=== PATIENT | male | born 1950 | race Hispanic/Latino ===

== ENCOUNTER 2019-02-19 12:28 | Emergency (ER) | payer BC ==
[~2019-02-19] VITALS: Ht 157.5 cm; Wt 65.8 kg
--- OUTSIDE RECORDS SUMMARY | 2019-02-19 12:31 | XMS REPORT ---
Author Author [facility] Address Unknown Phone Unavailable Care Team Providers Care Internal Grinder Tender Name Role Phone DR RASHID NAVA Unavailable Unavailable Yuli ROBIN Unavailable Unavailable Problems This patient has no known problems. Allergies, Adverse Reactions, Alerts This patient has no known allergies or adverse reactions. Medications This patient has no known medications. Encounters Start Date/Time End Date/Time Encounter Type Admission Type Attending [facility] Care Facility Care Department Encounter ID 2017-09-29 04:50:00 2017-09-29 08:19:00 Outpatient C RASHID NAVA [facility] [id number] Results Test Description Test Time Test Comments Text Results Atomic Results Result Comments SP LUMBAR, COMPLETE MIN 4VW [place] [address] Patient Name: LUIS M PRATHER I MR #: [id number] : 1950 Age/Sex: 66/M Req #: [id number] Adm Physician: Ordered by: KRISTINA ROBIN MD Report #: [id number] Location: ER Room/Bed: Procedure: [id number] DX/SP LUMBAR, COMPLETE MIN 4VW Exam Date: 08/20/17 Exam Time: 1126 REPORT STATUS: Signed Lumbar spine, complete. History: Pain. Comparison: None. Discussion: There are 5 lumbar type vertebral bodies. No displaced fracture or dislocation. Age-indeterminate compression fracture of L1 with approximate 25% decrease of the anterior vertebral body height. Degenerative changes evidenced by anterior osteophytosis. Bilateral facet hypertrophy is present at L4/L5 and L5/S1. The alignment of the lumbar spine is normal. The vertebral bodies and intervertebral disk spaces are within normal limits. There is no evidence of spondylolisthesis or spondylolysis. No evidence of lytic or sclerotic lesion. The paravertebral soft tissues are unremarkable. Atherosclerotic calcifications. IMPRESSION: No acute radiographic abnormality. Age indeterminate compression fracture of L1. Degenerative changes. Signed by: Dr. Ozzie Thompson M.D. on 08/20/2017 11:56 AM Dictated By: OZZIE THOMPSON MD 1156 Transcribed By: COURTNEY on 08/20/17 1156 COPY TO: KRISTINA ROBIN MD SHOULDER LEFT COMPLETE [place] [address] Patient Name: LUIS M PRATHER I MR #: [id number] : 1950 Age/Sex: 66/M Req #: [id number] Adm Physician: Ordered by: KRISTINA ROBIN MD Report #: [id number] Location: ER Room/Bed: Procedure: [id number] DX/SHOULDER LEFT COMPLETE Exam Date: 08/20/17 Exam Time: 1126 REPORT STATUS: Signed Left shoulder - 2 views HISTORY: Pain. COMPARISON: None available. FINDINGS: Bones: No acute displaced fracture. No expansile lytic or sclerotic lesion. Joints: The joint spaces are well- maintained. No dislocation. Soft tissues: The soft tissues appear unremarkable. IMPRESSION: No acute radiographic abnormality. Signed by: Dr. Ozzie Thompson M.D. on 08/20/2017 11:58 AM Dictated By: OZZIE THOMPSON MD 1154 Transcribed By: COURTNEY on 08/20/17 1155 COPY TO: KRISTINA ROBIN MD
[2019-02-19] MEDS ORDERED: LIDOCAINE HCL 1% 2 ML AMP INJ ONE (14:00)
[2019-02-19] MEDS ORDERED: LIDOCAINE HCL 1% LOCAL INJ 20 ML VIAL ONE (15:06)
[2019-02-19] MEDS ORDERED: AUGMENTIN 875-1 EACH PO (15:47)
[2019-02-19] MEDS ORDERED: TYLENOL WITH C1 EACH PO (15:57)
[2019-02-19] MEDS ORDERED: ACETAMINOPHEN/CODEINE 300MG - 30MG TAB PO ONE (16:00)
--- NOTE | 2019-02-19 16:31 | Diagnostic Imaging Report ---
Exam: Left rib radiographs History: Rib pain status post fall Comparison: None. Findings: The lungs are well-inflated and without focal airspace consolidation, pleural effusion, or pneumothorax. Cardiomediastinal contour and pulmonary vasculature are within normal limits. Surgical anchors in the left humeral head. L1 vertebroplasty cement. Acute minimally displaced fractures of the lateral aspects of the sixth and seventh ribs. Impression: Acute minimally displaced fractures of the lateral aspect of the left sixth and seventh ribs. No pneumothorax. Signed by: Dr. Harshad Goyal M.D. on 02/19/2019 4:28 PM
== END 2019-02-19 17:08 | disposition home or self-care (01) ==
LOC: ER 12:28
DX: S01.81XA Laceration without foreign body of other part of head, initial encounter (principal); S00.83XA Contusion of other part of head, initial encounter; S22.42XA Multiple fractures of ribs, left side, initial encounter for closed fracture; S20.212A Contusion of left front wall of thorax, initial encounter; W01.0XXA Fall on same level from slipping, tripping and stumbling without subsequent striking against object, initial encounter; Y92.008 Other place in unspecified non-institutional (private) residence as the place of occurrence of the external cause
CPT/HCPCS: 12051; 71101; 99283; J2001

== ENCOUNTER 2019-02-21 11:23 | Emergency (ER) | payer BC ==
[~2019-02-21] VITALS: Ht 154.9 cm; Wt 63.5 kg
[~2019-02-21 11:23] MED LIST: AUGMENTIN 875-1 EACH PO; TYLENOL WITH C1 EACH PO
[2019-02-21 11:41] VITALS: BP 116/79
== END 2019-02-21 11:44 | disposition left against medical advice (07) ==
LOC: ER 11:23
DX: R68.84 Jaw pain (principal)

== ENCOUNTER 2019-03-02 09:27 | Emergency (ER) | payer BC ==
[~2019-03-02] VITALS: Ht 154.9 cm; Wt 63.5 kg
[2019-03-02] MEDS ORDERED: HYDROCODONE/APAP 10MG-325MG TAB PO ONE (11:00)
--- NOTE | 2019-03-02 12:09 | Diagnostic Imaging Report ---
EXAM: CT Chest WITHOUT contrast INDICATION: ^S/P FALL ANTERIOR CHEST PAIN. Flu from fall. 2 ribs. Status post fall. Anterior chest pain. COMPARISON: Chest x-ray and rib series 02/19/2018. TECHNIQUE: Chest was scanned utilizing a multidetector helical scanner from the lung apex through the level of the adrenal glands without administration of IV contrast. Absence of intravenous contrast decreases sensitivity for detection of lymphadenopathy and vascular pathology. Coronal and sagittal reformations were obtained. Routine protocol was performed. IV CONTRAST: None COMPLICATIONS: None RADIATION DOSE: Total DLP: 564.24 mGy*cm Estimated effective dose: (DLP x 0.014 x size factor) mSv CTDIvol has been reviewed. It is below the limits set by the Radiation Protocol Committee (RPC). Dose modulation, iterative reconstruction, and/or weight based adjustment of the mA/kV was utilized to reduce the radiation dose to as low as reasonably achievable. FINDINGS: LINES/ TUBES: None. LUNGS AND AIRWAYS: The lungs are unremarkable. Airways are normal. * Cucumber 5 mm nodule in the right middle lobe abutting the minor fissure (series 3, image 69), likely intraparenchymal lymph node. * 5.2 mm nodule in the left lower lobe abutting the left major fissure (series 3, image 60). Subtle groundglass opacity in the right middle lobe. (Series 3, image 81) Mild scarring in the medial aspect of the right lower lobe. PLEURA: The pleural spaces are clear. HEART AND MEDIASTINUM: The thyroid gland is normal. No mediastinal, hilar or axillary lymphadenopathy. The heart is normal in size. There is no pericardial effusion. UPPER ABDOMEN: Atherosclerotic calcifications in the aorta. Upper abdomen is otherwise unremarkable. BONES: L1 vertebral plasty cement. Left rotator cuff anchor sutures. Nondisplaced acute fractures of the lateral fifth and sixth ribs. SOFT TISSUES: Unremarkable. IMPRESSION: 1. Stable nondisplaced fracture of the left fifth and sixth ribs. 2. Subtle groundglass opacity in the right middle lobe, which may represent subtle developing pneumonia. Signed by: Dr. Xavier Escudero M.D. on 03/02/2019 12:06 PM
[2019-03-02] MEDS ORDERED: LIDOCAINE HCL 1% 2 ML AMP ONE (12:53)
[2019-03-02] MEDS ORDERED: MECLIZINE HCL 12.5 MG TAB ONE (12:53)
[2019-03-02] MEDS ORDERED: LIDOCAINE HCL 1% LOCAL INJ 20 ML VIAL ONE (12:54)
[2019-03-02] MEDS ORDERED: CEFTRIAXONE SOD 1 GM VIAL IM ONE (13:30)
== END 2019-03-02 13:43 | disposition home or self-care (01) ==
LOC: ER 09:27
DX: R07.89 Other chest pain (principal); R06.02 Shortness of breath; S22.42XA Multiple fractures of ribs, left side, initial encounter for closed fracture; W18.30XA Fall on same level, unspecified, initial encounter; Y92.008 Other place in unspecified non-institutional (private) residence as the place of occurrence of the external cause; J15.9 Unspecified bacterial pneumonia
CPT/HCPCS: 71250; 99283; J0696; J2001 ×2; J8597

== ENCOUNTER 2019-05-27 10:10 | Emergency (ER) | payer BC, MEDICARE ==
[~2019-05-27] VITALS: Ht 154.9 cm; Wt 63.5 kg
[2019-05-27] MEDS ORDERED: TRAMADOL HCL 50 MG TAB PO ONE (10:30)
[2019-05-27] MEDS ORDERED: CYCLOBENZAPRINE HCL 10 MG TAB PO ONE (10:30)
--- NOTE | 2019-05-27 10:55 | Diagnostic Imaging Report ---
Right shoulder, 2 views. History: Fall. Findings: The soft tissues are normal. Bone mineralization is normal. There is no evidence of fracture, AC separation, or dislocation. There are no lytic or sclerotic lesions. There is right AC joint hypertrophy with inferior spurring. The glenohumeral joint is within normal limits. IMPRESSION: Right AC joint DJD. No acute osseous abnormality. Signed by: Farhan Levy on 05/27/2019 10:51 AM
[2019-05-27] MEDS ORDERED: IBUPROFEN 400 MG TAB PO ONE (11:00)
== END 2019-05-27 11:21 | disposition home or self-care (01) ==
LOC: ER 10:10
DX: S46.811A Strain of other muscles, fascia and tendons at shoulder and upper arm level, right arm, initial encounter (principal); X50.9XXA Other and unspecified overexertion or strenuous movements or postures, initial encounter; Y93.E1 Activity, personal bathing and showering; Y92.002 Bathroom of unspecified non-institutional (private) residence as the place of occurrence of the external cause
CPT/HCPCS: 99283

== ENCOUNTER 2021-04-05 11:28 | Emergency (ER) | payer MEDICARE ==
[~2021-04-05] VITALS: Ht 154.9 cm; Wt 63.5 kg
[2021-04-05] MEDS ORDERED: TRAMADOL HCL 50 MG TAB PO STA (11:50)
[2021-04-05] MEDS ORDERED: TETANUS/DIPHTHERIA TOX ADULT 0.5 ML SYR IM ONE (12:30)
[2021-04-05] MEDS ORDERED: SUMATRIPTAN SUC25 MG PO (12:33)
[2021-04-05] MEDS ORDERED: ATORVASTATIN CA20 MG PO (12:34)
[2021-04-05] MEDS ORDERED: FOLIC ACID0.8 MG (12:35)
[2021-04-05] MEDS ORDERED: HYDROXYZINE PAM25 MG PO (12:35)
[2021-04-05] MEDS ORDERED: DOXYCYCLINE HY100 MG PO (12:36)
[2021-04-05] MEDS ORDERED: PANTOPRAZOLE SO40 MG PO (12:36)
[2021-04-05] MEDS ORDERED: METOCLOPRAMIDE10 MG PO (12:49)
== END 2021-04-05 13:43 | disposition home or self-care (01) ==
LOC: ER 12:07
DX: S63.641A Sprain of metacarpophalangeal joint of right thumb, initial encounter (principal); X58.XXXA Exposure to other specified factors, initial encounter; Y92.008 Other place in unspecified non-institutional (private) residence as the place of occurrence of the external cause
CPT/HCPCS: 90714; 99283

== ENCOUNTER 2022-01-21 17:49 | Emergency (ER) | payer MEDICARE ==
[~2022-01-21] VITALS: Ht 154.9 cm; Wt 63.5 kg
[~2022-01-21 17:49] MED LIST changes: +ATORVASTATIN CA20 MG PO; +DOXYCYCLINE HY100 MG PO; +FOLIC ACID0.8 MG; +HYDROXYZINE PAM25 MG PO; +METOCLOPRAMIDE10 MG PO; +PANTOPRAZOLE SO40 MG PO; +SUMATRIPTAN SUC25 MG PO
[2022-01-21] MEDS ORDERED: IBUPROFEN 600 MG TAB PO STA (18:27)
[2022-01-21] MEDS ORDERED: CEFTRIAXONE 1 GM in SODIUM CHLORIDE 0.9% 50ML 50 ML IV SCH (18:45)
[2022-01-21 18:54] LABS: BASOPHILS % 0.2 % (0.0-1.0); EOSINOPHILS # (AUTO) 0.4 (0.0-0.4); EOSINOPHILS % 4.3 % (0.0-6.0); HEMATOCRIT 40.5 % (38.2-49.6); HEMOGLOBIN 13.8 g/dL (14.0-18.0); LYMPHOCYTES # (AUTO) 0.9 (1.0-3.2); LYMPHOCYTES % 10.4 % (18.0-39.1); MEAN CORPUSCULAR HEMOGLOBIN 31.8 pg (28-32); MEAN CORPUSCULAR HGB CONC 34.1 g/dL (31-35); MEAN CORPUSCULAR VOLUME 93.3 fL (81-99); MONOCYTES % 11.7 % (4.4-11.3); NEUTROPHILS # (AUTO) 6.3 (2.1-6.9); NEUTROPHILS % 73.1 % (38.7-80.0); PLATELET COUNT 212 x10e3/uL (140-360); RED BLOOD COUNT 4.34 x10e6/uL (4.3-5.7)
[2022-01-21 19:12] LABS: ALBUMIN 3.2 g/dL (3.5-5.0); ALBUMIN/GLOBULIN RATIO 0.7 (0.8-2.0); ANION GAP 10.8 mmol/L (8-16); CALCIUM 8.1 mg/dL (8.4-10.2); CREATININE, SERUM 0.77 mg/dL (0.72-1.25); POTASSIUM 3.8 mmol/L (3.5-5.1)
[2022-01-21 19:36] LABS: CLARITY,URINE CLEAR (CLEAR); COLOR,URINE YELLOW (YELLOW); KETONES,URINE NEGATIVE (NEGATIVE); LEUKOCYTE ESTERASE ,URINE NEGATIVE (NEGATIVE); NITRITE,URINE NEGATIVE (NEGATIVE); PROTEIN,URINE DIPSTICK 1+ (NEGATIVE); URINE UROBILINOGEN 0.2 mg/dL (0.2 - 1)
[2022-01-21 19:44] LABS: BACTERIA,URINE RARE /HPF
[2022-01-21] MEDS ORDERED: IOPAMIDOL 370 MG/ML 200 ML INFUS..BTL INJ ONE (20:24)
[2022-01-21] MEDS ORDERED: SODIUM CHLORIDE 0.9% 50ML 50 ML ONE (20:24)
[2022-01-21 22:31] VITALS: BP 104/67
== END 2022-01-21 22:32 | disposition home or self-care (01) ==
LOC: ER 18:39
DX: R30.0 Dysuria (principal); R50.9 Fever, unspecified; R10.9 Unspecified abdominal pain; Z79.899 Other long term (current) drug therapy
CPT/HCPCS: 36415; 74177; 80053; 81001; 83605; 85025; 87040; 87086; 99284; J0696; Q9967